=== PATIENT | male | born 1995 | race African-American/Black ===

== ENCOUNTER → 2022-10-31 | Outpatient (CLI) | payer OTHER ==
--- NOTE | 2022-10-31 20:11 | XR ---
EXAMINATION TYPE: XR knee complete RT DATE OF EXAM: 10/31/2022 7:25 PM INDICATION: Patient age:Male; 27 years old; Reason for study: S80.01XD; [facility]. COMPARISON: None. TECHNIQUE: The Right knee(s) was examined in Frontal, lateral and oblique projections. FINDINGS: No evidence of any acute osseous pathology, soft tissue swelling, or joint effusion is no camila. IMPRESSION: 1. No acute osseous pathology.
== END | disposition home or self-care (01) ==
LOC: RADXRMAIN 18:53
PROVIDERS: ATTEND Emergency Medicine
DX: S80.01XD Contusion of right knee, subsequent encounter (principal)